=== PATIENT | male | born 1995 | race Two or more races ===

== ENCOUNTER 2021-01-29 05:16 | Emergency (ER) | payer OTHER ==
[~2021-01-29] VITALS: Ht 170.2 cm; Wt 81.6 kg
--- NOTE | 2021-01-29 05:19 | NUR ---
BIB [id number] FOR R SHOULDER DISLOCATION WHILE STRETCHING. REPORTS A HISTORY OF SHOULDER DISLOCATION. V/S STABLE IN BED 4 ER. WAS AT BEDSIDE FOR EVAL WILL CONTINUE TO MONITOR.
[2021-01-29] MEDS ORDERED: PROPOFOL 20 ML IV ONE ×2 (06:20→06:43)
--- NOTE | 2021-01-29 06:34 | NUR ---
0634-PROPOFOL 40MG IVP GIVEN ORDERED BY DR SALAZAR. 0635-ADDITIONAL PROPOFOL 40MG IVP GIVEN 0636-ADDITIONAL 20MG PROPOFOL GIVEN 0637-ADDITIONAL 20MG PROPOFOL GIVEN 0638-ADDITIONAL 20MG PROPOFOL GIVEN 0639-ADDITIONAL 20MG PROPOFOL GIVEN 0640-ADDITIONAL 20MG PROPOFOL GIVEN 0641-ADDITIONAL 20MG PROPOFOL GIVEN 0644- FENTANYL 25MCG GIVEN 0645-ADDITIONAL 40MG PROPOFOL GIVEN 0646-ADDITIONAL 20MG PROPOFOL GIVEN 0647-ADDITIONAL 20MG PROPOFOL GIVEN 0648-FENTANYL 25MCG GIVEN. TOTAL PROPOFOL GIVEN 280MG TOTAL 50MCG FENTANYL GIVEN.
[2021-01-29] MEDS ORDERED: FENTANYL PF 100MCG/2ML AMPUL ONE (06:42)
--- NOTE | 2021-01-29 06:49 | NUR ---
R SHOULDER REDUCTION WAS DONE BY DOCTOR SALAZAR AT BEDSIDE. PT RECIEVED A TOTAL OF 280 MG PROPOFOL AND 50MG OF FENTANYL IV FOR SEDATATION WITH DOCTOR AND RT AT BEDSIDE. PT TOLERATED PROCEDURE WELL. REMAINED ON FULL ASSET PROTECTION ASSOCIATE. Addendum: 01/29/21 at 0715 by [email or web address] FENTANYL 50 MCG GIVEN PER DOCTOR ORDER. ERROR TYPING.
[2021-01-29] MEDS ORDERED: NALOXONE HCL 0.4 MG/ML AMPUL ONE (06:50)
--- NOTE | 2021-01-29 06:55 | NUR ---
RADIOLOGY AT BEDSIDE. PT AWAKE AND RESPONSIVE BREATHING UNLABORED HOLDING O2 SAT 97% RA. NO RESPIRITORY DISTRESS NOTED. WILL CONTINUE TO MONITOR.
--- NOTE | 2021-01-29 07:09 | NUR ---
DR SALAZAR AT BED SIDE SOPEAKING TO THE PT
--- NOTE | 2021-01-29 07:25 | NUR ---
REPORT RECEIVED FROM ANISHA VILLATORO FOR [facility]. PT IS ASLEEP EASILY AROUSABLE, NOT IN RESPIRATORY DISTRESS, V/S STABLE, KEPT RESTED AND COMFORTABLE. WILL CONTINUE TO MONITOR.
[2021-01-29] MEDS ORDERED: FENTANYL PF 100MCG/2ML AMPUL IV ONE (07:30)
[2021-01-29] MEDS ORDERED: PROPOFOL 1,000 MG/100 ML BOTTLE IV ONE (07:30)
[2021-01-29 08:00] VITALS: BP 123/73
--- NOTE | 2021-01-29 08:00 | NUR ---
IV removed. Catheter intact and site benign. Pressure and 4x4 applied to site. No bleeding noted. Patient discharged to home in stable condition. Written and verbal after care instructions given. Patient verbalizes understanding of instruction.
== END 2021-01-29 08:00 | disposition home or self-care (01) ==
LOC: ER 05:19
DX: S43.084A Other dislocation of right shoulder joint, initial encounter (principal); X50.9XXA Other and unspecified overexertion or strenuous movements or postures, initial encounter; Y93.89 Activity, other specified; Y92.89 Other specified places as the place of occurrence of the external cause; Y99.8 Other external cause status
CPT/HCPCS: 23650; 73030 ×2; 99152; 99285; J2704 ×2; J3010; J7030; G0500; J2310